=== PATIENT | male | born 1985 | race Hispanic/Latino ===

== ENCOUNTER 2018-10-17 15:41 | Emergency (ER) | payer OTHER, SELFPAY ==
--- NOTE | 2018-10-17 15:59 | RAD ---
Right knee 4 views HISTORY: Right knee injury. FINDINGS: Joint spaces are preserved. No acute fracture, dislocation, or fluid distention of the supr apatellar bursa. IMPRESSION: No acute osseous abnormalities are demonstrated.
== END 2018-10-17 16:12 | disposition home or self-care (01) ==
LOC: ERS 15:41
DX: S80.01XA Contusion of right knee, initial encounter (principal); F17.210 Nicotine dependence, cigarettes, uncomplicated; V89.2XXA Person injured in unspecified motor-vehicle accident, traffic, initial encounter